=== PATIENT | female | born 1980 | race Two or more races ===

== ENCOUNTER → 2016-09-09 | Outpatient (CLI) | payer OTHER | END | disposition home or self-care (01) | LOC: LAB 10:00 | PROVIDERS: ATTEND Nurse Practitioner Obstetrics & Gynecology | DX: O09.521 Supervision of elderly multigravida, first trimester (principal); Z3A.00 Weeks of gestation of pregnancy not specified | CPT/HCPCS: 36415; 82105; 82677; 84702; 86336 ==

== ENCOUNTER → 2016-10-14 | Outpatient (CLI) | payer OTHER | END | disposition home or self-care (01) | LOC: LAB 10:23 | PROVIDERS: ATTEND Registered Nurse | DX: O09.522 Supervision of elderly multigravida, second trimester (principal); O99.282 Endocrine, nutritional and metabolic diseases complicating pregnancy, second trimester; E07.9 Disorder of thyroid, unspecified; Z3A.00 Weeks of gestation of pregnancy not specified | CPT/HCPCS: 36415; 82950; 84439; 84443; 85025 ==

== ENCOUNTER → 2016-12-04 | Outpatient (CLI) | payer OTHER | END | disposition home or self-care (01) | LOC: LAB 10:24 | PROVIDERS: ATTEND Registered Nurse | DX: O09.522 Supervision of elderly multigravida, second trimester (principal); O99.282 Endocrine, nutritional and metabolic diseases complicating pregnancy, second trimester; E03.9 Hypothyroidism, unspecified; Z3A.00 Weeks of gestation of pregnancy not specified | CPT/HCPCS: 36415; 84439; 84443 ==

== ENCOUNTER 2016-12-22 20:52 | Observation (INO) | payer OTHER ==
[~2016-12-22] VITALS: Ht 165.1 cm; Wt 72.7 kg
[2016-12-22] MEDS ORDERED: LACTATED RINGERS 1,000 ML IV SCH (20:56)
[2016-12-22 20:57] VITALS: BP 104/60
[2016-12-22] MEDS ORDERED: CALCIUM CARBONATE 500 MG TAB.CHEW PO PRN (21:00)
[2016-12-22] MEDS ORDERED: BETAMETHASONE 6 MG/ML, 5ML IM SCH (21:00)
[2016-12-22] MEDS ORDERED: BETAMETHASONE 6 MG/ML, 5ML IM ONE ×2 (21:08→21:30)
[2016-12-22] MEDS ORDERED: [UNRECOGNIZED DRUG - REMARK] (22:15)
[2016-12-22] MEDS ORDERED: PREN1TAB60 PO (22:15)
[2016-12-23] MEDS ORDERED: BETAMETHASONE 6 MG/ML, 5ML IM ONE (21:30)
== END 2016-12-22 23:27 | disposition home or self-care (01) ==
LOC: LDIP 20:52
PROVIDERS: ADMIT Student in an Organized Health Care Education/Training Program; ATTEND Student in an Organized Health Care Education/Training Program
DX: O09.523 Supervision of elderly multigravida, third trimester (principal); Z3A.33 33 weeks gestation of pregnancy
CPT/HCPCS: 59025; 96372; G0378; J0702

== ENCOUNTER → 2016-12-23 | Outpatient (CLI) | payer OTHER ==
[~2016-12-23] MED LIST: BETAMETHASONE 6 MG/ML, 5ML IM ONE; LEVO100T5 PO; PREN1TAB60 PO; [UNRECOGNIZED DRUG - REMARK]
== END | disposition home or self-care (01) ==
LOC: LDOP 19:05
PROVIDERS: ATTEND Student in an Organized Health Care Education/Training Program
DX: O09.523 Supervision of elderly multigravida, third trimester (principal); Z3A.36 36 weeks gestation of pregnancy
CPT/HCPCS: 59025; 96372; 99211; J0702; G0463

== ENCOUNTER 2016-12-25 10:02 | Observation (INO) | payer OTHER ==
[~2016-12-25] VITALS: Ht 165.1 cm; Wt 63.6 kg
[~2016-12-25 10:02] MED LIST changes: -BETAMETHASONE 6 MG/ML, 5ML IM ONE; -LEVO100T5 PO
[2016-12-25 10:17] VITALS: BP 117/62
[2016-12-25] MEDS ORDERED: LEVO100T5 PO (10:21)
[2016-12-25] MEDS: SODIUM CHLORIDE FLUSH 10ML SYR IVF SCH ×2 (13:16→22:37)
[2016-12-26 07:47] VITALS: BP 97/55
== END 2016-12-26 13:29 | disposition home or self-care (01) ==
LOC: LDOP 10:02 → LDIP 13:00
PROVIDERS: ADMIT Student in an Organized Health Care Education/Training Program; ATTEND Student in an Organized Health Care Education/Training Program
DX: O09.523 Supervision of elderly multigravida, third trimester (principal); O99.283 Endocrine, nutritional and metabolic diseases complicating pregnancy, third trimester; E03.9 Hypothyroidism, unspecified; Z3A.34 34 weeks gestation of pregnancy
CPT/HCPCS: 59025; 76819; 99211; G0378; G0463

== ENCOUNTER 2016-12-28 11:06 | Outpatient (CLI) | payer MEDICAID, OTHER ==
[~2016-12-28] VITALS: Ht 165.1 cm; Wt 65.9 kg
[~2016-12-28 11:06] MED LIST changes: +LEVO100T5 PO
[2016-12-28 11:25] VITALS: BP 115/69
== END 2016-12-28 14:00 | disposition home or self-care (01) ==
LOC: LDOP 11:06
PROVIDERS: ATTEND Student in an Organized Health Care Education/Training Program
DX: O09.523 Supervision of elderly multigravida, third trimester (principal); O36.8130 Decreased fetal movements, third trimester, not applicable or unspecified; O41.03X0 Oligohydramnios, third trimester, not applicable or unspecified; O99.283 Endocrine, nutritional and metabolic diseases complicating pregnancy, third trimester; E07.9 Disorder of thyroid, unspecified; Z3A.35 35 weeks gestation of pregnancy
CPT/HCPCS: 59025; 76819; 99211; G0463

== ENCOUNTER 2017-01-04 20:24 | Inpatient (IN) | payer OTHER ==
[~2017-01-04] VITALS: Ht 165.1 cm; Wt 66.8 kg
[2017-01-04] MEDS ORDERED: HYDROmorphone 2 MG/ML, 1ML ONE (20:55)
[2017-01-04] MEDS ORDERED: FENTANYL PF 100 MCG/2ML ONE (20:55)
[2017-01-04] MEDS ORDERED: OXYTOCIN 30U/ 0.9% NaCL 500ML 500 ML IV SCH (20:59)
[2017-01-04] MEDS ORDERED: LACTATED RINGERS 1,000 ML IV SCH ×2 (20:59→21:00)
[2017-01-04 21:00] VITALS: BP 125/78
[2017-01-04] MEDS ORDERED: LACTATED RINGERS 1,000 ML IVBOLUS ONE (21:00)
[2017-01-04] MEDS ORDERED: METOCLOPRAMIDE 5 MG/ML, 2ML IV ONE (21:00)
[2017-01-04] MEDS ORDERED: SODIUM CITRATE/CITRIC ACID 30 ML UDC PO ONE (21:00)
[2017-01-04] MEDS: OXYTOCIN 30U/ 0.9% NaCL 500ML 500 ML IV SCH (21:01)
[2017-01-04] MEDS: LACTATED RINGERS 1,000 ML IV SCH ×2 (21:01)
[2017-01-04 21:28] LABS: HEMATOCRIT 32.8 % (34.6-47.8); HEMOGLOBIN 11.2 g/dL (11.7-16.4); WHITE BLOOD COUNT 8.5 x10^3/uL (3.4-10)
[2017-01-04] MEDS: PLEASE ENTER HEIGHT AND WEIGHT MC SCH (21:30)
[2017-01-04] MEDS ORDERED: ACETAMINOPHEN 325 MG TABLET PO PRN (21:30)
[2017-01-04] MEDS ORDERED: ONDANSETRON 2MG/ML, 2ML IV PRN (21:30)
[2017-01-04] MEDS ORDERED: METOCLOPRAMIDE 5 MG/ML, 2ML IV PRN (21:30)
[2017-01-04] MEDS ORDERED: SIMETHICONE 80 MG CHEW TAB PO PRN (21:30)
[2017-01-04] MEDS ORDERED: CALCIUM CARBONATE 500 MG TAB.CHEW PO PRN (21:30)
[2017-01-04] MEDS ORDERED: CEFAZOLIN 1,000 MG ONE (21:39)
[2017-01-04] MEDS ORDERED: ONDANSETRON 2MG/ML, 2ML ONE (21:39)
[2017-01-04] MEDS ORDERED: BUPIVACAINE 0.25% ONE (21:39)
[2017-01-04] MEDS ORDERED: OXYTOCIN 30U/ 0.9% NaCL 500ML 500 ML ONE (23:43)
[2017-01-05 00:55] VITALS: BP 108/67
[2017-01-05] MEDS: KETOROLAC 30 MG/1 ML IV SCH ×4 (03:08→23:20)
[2017-01-05 04:30] VITALS: BP 103/64
[2017-01-05] MEDS: LACTATED RINGERS 1,000 ML IV SCH ×5 (05:01→21:01)
[2017-01-05] MEDS: PLEASE ENTER HEIGHT AND WEIGHT MC SCH ×3 (05:30→21:30)
[2017-01-05] MEDS: OXYcodone/APAP 5/325MG TABLET PO PRN ×5 (06:14→20:30)
[2017-01-05] MEDS: OXYTOCIN 30U/ 0.9% NaCL 500ML 500 ML IV SCH ×2 (07:01→17:01)
[2017-01-05 07:02] LABS: HEMATOCRIT 32.1 % (34.6-47.8); HEMOGLOBIN 10.8 g/dL (11.7-16.4); WHITE BLOOD COUNT 8.7 x10^3/uL (3.4-10)
[2017-01-05 07:15] VITALS: BP 104/69
[2017-01-05] MEDS: DOCUSATE 100 MG CAPSULE PO PRN ×2 (10:56→20:30)
[2017-01-05] MEDS: PRENATAL VIT/IRON/FA 1 EACH TABLET PO SCH (10:56)
[2017-01-05 20:00] VITALS: BP 107/74
[2017-01-06] MEDS: LACTATED RINGERS 1,000 ML IV SCH ×6 (03:01→23:01)
[2017-01-06] MEDS: OXYTOCIN 30U/ 0.9% NaCL 500ML 500 ML IV SCH ×3 (03:01→23:01)
[2017-01-06] MEDS: KETOROLAC 30 MG/1 ML IV SCH ×4 (05:05→23:00)
[2017-01-06] MEDS: PLEASE ENTER HEIGHT AND WEIGHT MC SCH ×3 (05:30→21:30)
[2017-01-06 08:00] VITALS: BP 109/72
[2017-01-06] MEDS: DOCUSATE 100 MG CAPSULE PO PRN (08:41)
[2017-01-06] MEDS: PRENATAL VIT/IRON/FA 1 EACH TABLET PO SCH (08:41)
[2017-01-06] MEDS ORDERED: IBUP-1222 PO (10:04)
[2017-01-06] MEDS ORDERED: DOCU-30 PO (10:05)
[2017-01-06] MEDS ORDERED: OXYC-302 PO (10:06)
[2017-01-06 20:00] VITALS: BP 101/62
[2017-01-06] MEDS ORDERED: DIPH,PERTUSS(ACELL),TET VAC/PF NC IM-VACC ONE ×2 (20:28→20:30)
[2017-01-06] MEDS: OXYcodone/APAP 5/325MG TABLET PO PRN (20:42)
[2017-01-07] MEDS: IBUPROFEN 600 MG TABLET PO PRN ×4 (01:34→21:34)
[2017-01-07] MEDS: OXYcodone/APAP 5/325MG TABLET PO PRN (01:34)
[2017-01-07] MEDS: DOCUSATE 100 MG CAPSULE PO PRN ×2 (07:51→21:35)
[2017-01-07] MEDS: PRENATAL VIT/IRON/FA 1 EACH TABLET PO SCH (07:51)
[2017-01-07 08:00] VITALS: BP 106/68
[2017-01-07 19:20] VITALS: BP 114/74
[2017-01-08] MEDS: IBUPROFEN 600 MG TABLET PO PRN (03:56)
[2017-01-08] MEDS: PRENATAL VIT/IRON/FA 1 EACH TABLET PO SCH (07:13)
[2017-01-08 07:20] VITALS: BP 115/79
[2017-01-08] MEDS: OXYcodone/APAP 5/325MG TABLET PO PRN (09:03)
[2017-01-08] MEDS ORDERED: ONDANSETRON ODT 4 MG PO PRN (12:30)
== END 2017-01-08 13:22 | disposition home or self-care (01) | DRG 765 ==
LOC: LDIP 20:39 → 2NW 01-05
PROVIDERS: ADMIT Obstetrics & Gynecology; ATTEND Obstetrics & Gynecology
PROC: 10D00Z1 Extraction of Products of Conception, Low, Open Approach (ICD-10-PCS; principal; 2017-01-04)
PROC: 0UB70ZZ Excision of Bilateral Fallopian Tubes, Open Approach (ICD-10-PCS; 2017-01-04)
DX: O41.03X0 Oligohydramnios, third trimester, not applicable or unspecified (principal); O36.5930 Maternal care for other known or suspected poor fetal growth, third trimester, not applicable or unspecified; O09.523 Supervision of elderly multigravida, third trimester; Z30.2 Encounter for sterilization; Z3A.35 35 weeks gestation of pregnancy
CPT/HCPCS: 36415; 85025; 86850; 86900; 88302; 88307; 90715; J0690; J1170; J1885; J2405; J3010; J3490; Q0162; J2590; J2765; J7120